=== PATIENT | male | born 1955 | race Caucasian/White ===

== ENCOUNTER 2019-06-21 10:56 | Outpatient (CLI) | payer OTHER ==
[2019-07-17] MEDS ORDERED: METFORMIN HCL1000 M1 PO (11:54)
[2019-07-17] MEDS ORDERED: ALTACE10 MG PO (11:54)
[2019-07-17] MEDS ORDERED: GLIMEPIRIDE4 MG PO (11:54)
[2019-07-17] MEDS ORDERED: LIPITOR40 MG PO (11:54)
== END 2019-06-21 17:00 | disposition home or self-care (01) ==
LOC: EDBD 10:56 → TOM 10:56
DX: K43.6 Other and unspecified ventral hernia with obstruction, without gangrene (principal)

== ENCOUNTER 2019-06-26 14:33 | Outpatient (CLI) | payer OTHER | END 2019-06-26 14:35 | disposition home or self-care (01) | LOC: RAD 14:33 | DX: K43.6 Other and unspecified ventral hernia with obstruction, without gangrene (principal); Z01.811 Encounter for preprocedural respiratory examination ==

== ENCOUNTER 2019-07-23 05:00 | Day surgery (SDC) | payer OTHER ==
[~2019-07-23 05:00] MED LIST: ALTACE10 MG PO; GLIMEPIRIDE4 MG PO; LIPITOR40 MG PO; METFORMIN HCL1000 M1 PO
== END 2019-07-23 12:00 | disposition home or self-care (01) ==
LOC: CIR.AMB 05:00
DX: K43.6 Other and unspecified ventral hernia with obstruction, without gangrene (principal)

== ENCOUNTER 2019-07-31 11:00 | Outpatient (CLI) | payer OTHER | END 2019-07-31 17:00 | disposition home or self-care (01) | LOC: RAD 11:00 | DX: M20.11 Hallux valgus (acquired), right foot (principal); T84.121A Displacement of internal fixation device of left humerus, initial encounter ==